=== PATIENT | male | born 1950 | race Caucasian/White ===

== ENCOUNTER 2018-12-20 11:39 | Emergency (ER) | payer MEDICARE, BC ==
[2018-12-20] MEDS ORDERED: Aspirin 81 MG Tab.Chew PO ONE (11:54)
[2018-12-20] MEDS ORDERED: Sodium Chloride 0.9% 10 ML Syringe FLUSH PRN (11:54)
[2018-12-20] MEDS ORDERED: Metoprolol Tartrate 5 MG/5 ML SDV IVPUSH ONE (11:54)
[2018-12-20] MEDS ORDERED: Ondansetron 4 MG/2 ML SDV IVPUSH ONE (11:56)
[2018-12-20] MEDS ORDERED: Nitroglycerin/D5W 25 MG/250 ML BOTTLE IV SCH (12:00)
--- NOTE | 2018-12-20 12:05 | EDM.PDOC ---
ED HPI GENERAL MEDICAL PROBLEM - General Chief Complaint: Chest Pain Stated Complaint: CHEST PAIN Time Seen by Provider: 12/20/18 11:45 Source of Information: Reports: Patient History Limitations: Reports: No Limitations - History of Present Illness INITIAL COMMENTS - FREE TEXT/NARRATIVE: 68-year-old male presents for evaluation and treatment chest pain. Patient reports that he woke up this morning on 0530 with chest pain. States is located in the center of his chest with some radiation into his left elbow and the left upper side of his back. States the pain is a constant dull achiness. He describes pain as "being punched or hit in the chest ". They have tried over-the -counter Tums with no pain relief. He did take a 325 mg aspirin at home but he did vomit this up. He vomited several times this morning, last emesis was around 0700. Reports the nausea is improved at this time. He did feel slightly lightheaded getting out of his private vehicle when entering the ER. He denies any recent fevers cough or cold symptoms. No shortness of breath, syncope or abdominal pain. He denies any pain or swelling in his leg other than normal. He denies any recent activities such as heavy lifting. Patient denies any cardiac history. He has had a stress test but states has been several years. Denies any history of high hypertension or high cholesterol. No diabetes. Reports family history significant for brother with an [place] in his 40s. He has been seen Dr. Ho and Dr. Jose for kidney stones and had 3 surgeries over the last 3 months for kidney stones. Treatments GLASS DECORATOR: Reports: Aspirin, Other (see below) Other Treatments GLASS DECORATOR: TUMS mylanta pepcid Chest Pain Score (Numeric/FACES): 6 - Related Data Allergies Allergy/AdvReac Type Severity Reaction Status Date / Time Sulfa (Sulfonamide Allergy Rash Verified 12/20/18 11:49 Antibiotics) Home Meds: Home Meds Sulfamethoxazole/Trimethoprim [Sulfamethoxazole-Tmp Ds Tablet] 1 tab PO BID 11/13 [History] Past Medical History HEENT History: Reports: Impaired Vision, Other (See Below) Other HEENT History: wears glasses Genitourinary History: Reports: BPH, Renal Calculus Other Genitourinary History: urinary retention. patient straight caths at home PRN. Musculoskeletal History: Reports: Back Pain, Chronic - Past Surgical History GI Surgical History: Reports: Appendectomy Social & Family History - Family History Family Medical History: Noncontributory - Tobacco Use Smoking Status *Q: Never Smoker - Caffeine Use Caffeine Use: Reports: Coffee - Living Situation & Occupation Living situation: Reports: Occupation: Employed ED ROS GENERAL - Review of Systems Review Of Systems: See Below Constitutional: Reports: Malaise. Denies: Fever, Chills Respiratory: Denies: Shortness of Breath, Cough Cardiovascular: Reports: Chest Pain, Lightheadedness. Denies: Blood Pressure Problem, Syncope GI/Abdominal: Reports: Nausea, Vomiting. Denies: Abdominal Pain Musculoskeletal: Reports: Arm Pain, Back Pain Neurological: Denies: Syncope ED EXAM, GENERAL - Physical Exam Exam: See Below Exam Limited By: No Limitations General Appearance: Alert, WD/WN, No Apparent Distress Nose: Normal Inspection Throat/Mouth: Normal Inspection, Normal Oropharynx, Normal Voice, No Airway Compromise Neck: Normal Inspection Respiratory/Chest: No Respiratory Distress, Lungs Clear, Normal Breath Sounds, Chest Non-Tender Cardiovascular: Normal Peripheral Pulses, Regular Rate, Rhythm, No Murmur GI/Abdominal: Normal Bowel Sounds, Soft, Non-Tender Neurological: Alert, Oriented, Normal Cognition Psychiatric: Normal Affect, Normal Mood Skin Exam: Warm, Dry, Normal Color Course - Vital Signs Last Recorded V/S: Last Vital Signs Temp 98.2 F 12/20/18 11:43 Pulse 64 12/20/18 13:13 Resp 16 12/20/18 13:13 BP 141/80 H 12/20/18 13:13 Pulse Ox 98 12/20/18 13:13 - Orders/Labs/Meds Orders: Active Orders 24 hr Category Date Time Status Cardiac Monitoring [RC] . DIRECTED Care 12/20/18 11:54 Active EKG 12 Lead [EKG Documentation Completion] [RC] STAT Care 12/20/18 11:53 Active EKG 12 Lead [EKG Documentation Completion] [RC] STAT Care 12/20/18 12:15 Active Peripheral IV Care [RC] . DIRECTED Care 12/20/18 11:55 Active PTT MIXING STUDY [REF] Stat Lab 12/20/18 12:53 Received Heparin Sodium/D5W [Heparin 25,000 Units in D5W 500 ML] Med 12/20/18 12:30 Active 25,000 units in 500 ml IV TITRATE Nitroglycerin/D5W [Nitroglycerin 25 MG/D5W 250 ML] Med 12/20/18 12:00 Active 25 mg in 250 ml IV TITRATE Sodium Chloride 0.9% [Saline Flush] Med 12/20/18 11:54 Active 10 ml FLUSH ASDIRECTED PRN Peripheral IV Insertion Adult [OM.PC] Routine Oth 12/20/18 11:54 Ordered Medication Orders Nitroglycerin/Dextrose (Nitroglycerin 25 Mg/D5w 250 Ml) 25 mg in 250 mls @ 3 mls/hr IV TITRATE NOEMY; Protocol Last Admin: 12/20/18 12:18 Dose: 5 mcg/min, 3 mls/hr Heparin Sodium/Dextrose (Heparin 25,000 Units In D5w 500 Ml) 25,000 units in 500 mls @ 20 mls/hr IV TITRATE NOEMY; Protocol Last Admin: 12/20/18 12:40 Dose: 1,000 units/hr, 20 mls/hr Sodium Chloride (Saline Flush) 10 ml FLUSH ASDIRECTED PRN PRN Reason: Keep Vein Open Last Admin: 12/20/18 12:13 Dose: 10 ml Labs: Laboratory Tests 12/20/18 12/20/18 12/20/18 Range/Units 11:50 11:50 11:50 WBC 9.90 H (4.23-9.07) K/mm3 RBC 5.15 (4.63-6.08) M/mm3 Hgb 14.9 (13.7-17.5) gm/L Hct 43.4 (40.1-51.0) % MCV 84.3 (79.0-92.2) fl MCH 28.9 (25.7-32.2) pg MCHC 34.3 (32.2-35.5) g/dl RDW Std Deviation 39.5 (35.1-43.9) fL Plt Count 155 L (163-337) K/mm3 MPV 11.4 (9.4-12.3) fl Neut % (Auto) 91.1 H (34.0-67.9) % Lymph % (Auto) 5.4 L (21.8-53.1) % [place] % (Auto) 3.4 L (5.3-12.2) % Eos % (Auto) 0 L (0.8-7.0) Baso % (Auto) 0.0 L (0.1-1.2) % Neut # (Auto) 9.02 H (1.78-5.38) K/mm3 Lymph # (Auto) 0.53 L (1.32-3.57) K/mm3 [place] # (Auto) 0.34 (0.30-0.82) K/mm3 Eos # (Auto) 0.00 L (0.04-0.54) K/mm3 Baso # (Auto) 0.00 L (0.01-0.08) K/mm3 Manual Slide Review Abnormal smear PT 10.8 (9.5-12.1) SECONDS INR 0.99 Sodium 140 (136-145) mEq/L Potassium 3.7 (3.5-5.1) mEq/L Chloride 105 (98-107) mEq/L Carbon Dioxide 23 (21-32) mEq/L Anion Gap 15.7 H (5-15) BUN 14 (7-18) mg/dL Creatinine 1.3 (0.7-1.3) mg/dL Est Cr Clr Drug Dosing 56.15 mL/min Estimated GFR (MDRD) 55 (>60) mL/min BUN/Creatinine Ratio 10.8 L (14-18) Glucose 110 (80-115) mg/dL Calcium 8.9 (8.5-10.1) mg/dL Total Bilirubin 1.7 H (0.2-1.0) mg/dL AST 37 (15-37) U/L ALT 33 (16-63) U/L Alkaline Phosphatase 75 (46-116) U/L CK-MB (CK-2) 28.7 H (0-3.6) ng/ml Troponin I 1.421 H* (0.00-0.056) ng/mL Total Protein 6.9 (6.4-8.2) g/dl Albumin 3.6 (3.4-5.0) g/dl Globulin 3.3 gm/dL Albumin/Globulin Ratio 1.1 (1-2) Lipase 188 (73-393) U/L Meds: Medications Generic Name Dose Route Start Last Admin Trade Name Freq PRN Reason Stop Dose Admin Nitroglycerin/Dextrose 25 mg in 250 mls @ 3 mls/hr 12/20/18 12:00 12/20/18 12 :18 Nitroglycerin 25 Mg/D5w 250 Ml IV 5 mcg/min TITRATE NOEMY 3 mls/hr Administration Protocol 5 MCG/MIN Heparin Sodium/Dextrose 25,000 units in 500 mls @ 20 mls/hr 12/20/18 12:30 12:40 Heparin 25,000 Units In D5w 500 Ml IV 1,000 units/hr TITRATE NOEMY 20 mls/hr Administration Protocol 1,000 UNITS/HR Sodium Chloride 10 ml 12/20/18 11:54 12/20/18 12:13 Saline Flush FLUSH 10 ml ASDIRECTED PRN Administration Keep Vein Open Discontinued Medications Generic Name Dose Route Start Last Admin Trade Name Freq PRN Reason Stop Dose Admin Aspirin 324 mg 12/20/18 11:54 12/20/18 12:11 Aspirin PO 12/20/18 11:55 324 mg ONETIME ONE Administration Heparin Sodium (Porcine) 4,000 units 12/20/18 12:30 12/20/18 12:40 Heparin Sodium IVPUSH 12/20/18 12:31 4,000 units ONETIME ONE Administration Hydromorphone HCl 1 mg 12/20/18 12:30 12/20/18 12:42 Dilaudid IVPUSH 12/20/18 12:31 1 mg ONETIME ONE Administration Metoprolol Tartrate 5 mg 12/20/18 11:54 12/20/18 12:16 Lopressor IVPUSH 12/20/18 11:55 5 mg ONETIME ONE Administration Ondansetron HCl 4 mg 12/20/18 11:56 12/20/18 12:12 Zofran IVPUSH 12/20/18 11:57 4 mg ONETIME ONE Administration - Radiology Interpretation Free Text/Narrative:: chest xray impression per Dr. Knowles: No acute intrathoracic process. - Re-Assessments/Exams Free Text/Narrative Re-Assessment/Exam: 12/20/18 12:26 Inital EKG shows borderline ST depression in the anterior septal and inferior leads. Reviewed by myself and Dr. Galeana. Posterior EKG shows approximately 1/2mm ST elevation in V1, V2 Reviewed by myself and Dr. Galeana Awaiting labs. EKG initially just shows some ST depression in the anterior septal. Minimal. Obtaining a posterior EKG. While turning over in bed patient had an episode of V. tach lasting maybe 2 or 3 seconds. 12/20/18 13:28 Trop, CKMB elevated. Patient would like to go to [facility]. Will go by motors. Spoke with cardiology, Dr. Alvarez at [facility] in [place]. Advised to stop the nitroglycerin drip. This has been stopped. Spoke with Dr. Chau, ER physician. He has accepted the patient. So far the patient a 325 mg aspirin, 5 g IV push of Lopressor, heparin bolus of 4000 units and hyper drip of thousand units an hour. He has received several approximately 30 minutes of a nitro drip at 5 mcgs per hour. This did not improve his chest pain. He did receive 0.5 mg IV Dilaudid for the chest pain. Departure - Departure Time of Disposition: 13:32 Disposition: DC/Tfer to Acute Hospital 02 Reason for Transfer *Q: Primary PCI Indicated Condition: Serious Clinical Impression: NSTEMI (non-ST elevated myocardial infarction) Referrals: Fiona Lai CLAY PRESS OPERATOR [Primary Care Provider] - Forms: ED Department Discharge Additional Instructions: Patient going to [facility]. He will go through the ER. Dr. Chau accepting. Cardiology aware. - My Orders Last 24 Hours: My Active Orders 12/20/18 11:53 EKG 12 Lead [EKG Documentation Completion] [RC] STAT 12/20/18 11:54 Cardiac Monitoring [RC] . DIRECTED Sodium Chloride 0.9% [Saline Flush] 10 ml FLUSH ASDIRECTED PRN Peripheral IV Insertion Adult [OM.PC] Routine 12/20/18 11:55 Peripheral IV Care [RC] . DIRECTED 12/20/18 12:00 Nitroglycerin/D5W [Nitroglycerin 25 MG/D5W 250 ML] 25 mg in 250 ml IV TITRATE 12/20/18 12:15 EKG 12 Lead [EKG Documentation Completion] [RC] STAT 12/20/18 12:30 Heparin Sodium/D5W [Heparin 25,000 Units in D5W 500 ML] 25,000 units in 500 ml IV TITRATE 12/20/18 12:53 PTT MIXING STUDY [REF] Stat - Assessment/Plan Last 24 Hours: My Active Orders 12/20/18 11:53 EKG 12 Lead [EKG Documentation Completion] [RC] STAT 12/20/18 11:54 Cardiac Monitoring [RC] . DIRECTED Sodium Chloride 0.9% [Saline Flush] 10 ml FLUSH ASDIRECTED PRN Peripheral IV Insertion Adult [OM.PC] Routine 12/20/18 11:55 Peripheral IV Care [RC] . DIRECTED 12/20/18 12:00 Nitroglycerin/D5W [Nitroglycerin 25 MG/D5W 250 ML] 25 mg in 250 ml IV TITRATE 12/20/18 12:15 EKG 12 Lead [EKG Documentation Completion] [RC] STAT 12/20/18 12:30 Heparin Sodium/D5W [Heparin 25,000 Units in D5W 500 ML] 25,000 units in 500 ml IV TITRATE 12/20/18 12:53 PTT MIXING STUDY [REF] Stat
[2018-12-20] MEDS ORDERED: Heparin Sodium/D5W 25,000 UNITS/500 ML BAG IV SCH (12:30)
[2018-12-20] MEDS ORDERED: Heparin Sodium 5,000 Units/ML Vial IVPUSH ONE (12:30)
[2018-12-20] MEDS ORDERED: HYDROmorphone 1 MG/ML Syringe IVPUSH ONE (12:30)
--- NOTE | 2018-12-20 13:03 | CR ---
Chest: Portable view of the chest was obtained. Comparison: Prior chest x-ray of 08/30/18. Heart size and mediastinum are within normal limits for portable technique. Lungs are clear with no acute parenchymal change. Bony structures are grossly intact. Impression: 1. Nothing acute is appreciated on portable chest x-ray. Diagnostic code #1
[2018-12-20 13:14] VITALS: BP 141/80
== END 2018-12-20 13:56 ==
LOC: JD.ED 11:39
DX: I21.4 Non-ST elevation (NSTEMI) myocardial infarction (principal); Z88.2 Allergy status to sulfonamides; Z79.899 Other long term (current) drug therapy
CPT/HCPCS: 71045; 80053; 82553; 83690; 84484; 85025; 85610; 85732; 93005; 96365; 96368; 96375; 99285; A9270; J1170; J1644; J2405; J3490; 36415; 93010; 99284

== ENCOUNTER 2020-08-16 13:58 | Emergency (ER) | payer MEDICARE, BC ==
[2020-08-16 14:38] VITALS: BP 142/75
--- NOTE | 2020-08-16 15:17 | EDM.PDOC ---
ED HPI GENERAL MEDICAL PROBLEM - General Chief Complaint: Upper Extremity Injury/Pain Stated Complaint: L ARM INJURY/FACE INJURY Time Seen by Provider: 08/16/20 15:00 Source of Information: Reports: Patient History Limitations: Reports: No Limitations - History of Present Illness INITIAL COMMENTS - FREE TEXT/NARRATIVE: 69-year-old male presents to the ED for evaluation of blunt trauma that he suffered primarily to his left proximal forearm elbow and distal humerus. He also suffered blunt trauma to the left upper lip inside of his nose. 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 It did knock him to the ground. He did not have a nosebleed. Did have some feeling of being dazed and d isoriented after the injury. Also felt that he perhaps was have suffered some hearing loss in his left ear. Injury occurred about 1045 hrs. this morning. [place]. At present he has no headache no nausea or vomiting. He has no injuries to his back or posterior ribs. We did find a hematoma left anterior chest. He denies any pain in his hip or leg and could walk normally. Of note the patient is on Brilinta every day due to coronary artery stents make him at high risk for bleeding. Onset: Today, Sudden Onset Date: 08/16/20 Onset Time: 10:45 Duration: Hour(s): Location: Reports: Face (Left upper lip and zygoma left side of face.), Upper Extremity, Left (Left upper extremity primary proximal left forearm) Quality: Reports: Ache ( and distal humerus.), Throbbing Severity: Moderate Improves with: Reports: Rest Worsens with: Reports: Movement Context: Reports: Trauma (Struck by a large metal gate while working cows today. Several cows are going through the gate at the same time which slammed and into the left side of his body.). Denies: Activity (And touching the area.), Exercise, Lifting, Sick Contact Associated Symptoms: Reports: Confusion. Denies: Chest Pain, Cough (Incidentally.), cough w sputum, Diaphoresis, Fever/Chills, Headaches, Loss of Appetite, Malaise, Rash, Seizure, Shortness of Breath, Syncope Treatments CLINICAL RESOURCE DIRECTOR: Reports: Other (see below) (None.) Left Arm Pain Score (Numeric/FACES): 8 - Related Data Allergies Allergy/AdvReac Type Severity Reaction Status Date / Time Sulfa (Sulfonamide Allergy Rash Verified 08/16/20 14:38 Antibiotics) Home Meds: Home Meds Ascorbate Calcium [Vitamin C] 500 mg PO DAILY 01/07/19 [History] Aspirin [Halfprin] 81 mg PO DAILY 01/07/19 [History] Cholecalciferol (Vitamin D3) [Vitamin D3] 2,000 unit PO DAILY 01/07/19 [History] Colchicine [Colcrys] 0.6 mg PO BID 01/07/19 [History] Metoprolol Succinate 25 mg PO DAILY 01/07/19 [History] Nitroglycerin 0.4 mg SL ASDIRECTED PRN 01/07/19 [History] Pantoprazole Sodium 40 mg PO DAILY 01/07/19 [History] Rosuvastatin Calcium 40 mg PO DAILY 01/07/19 [History] Ticagrelor [Brilinta] 90 mg PO BID 01/07/19 [History] Past Medical History HEENT History: Reports: Impaired Vision, Other (See Below) Other HEENT History: wears glasses Cardiovascular History: Reports: AL, Stents Genitourinary History: Reports: BPH, Renal Calculus Other Genitourinary History: urinary retention. patient straight caths at home PRN. Musculoskeletal History: Reports: Back Pain, Chronic - Past Surgical History HEENT Surgical History: Reports: Tonsillectomy Cardiovascular Surgical History: Reports: Other (See Below) Other Cardiovascular Surgeries/Procedures: stents GI Surgical History: Reports: Appendectomy Other GI Surgeries/Procedures: hemorrhoidectomy Musculoskeletal Surgical History: Reports: Other (See Below) Other Musculoskeletal Surgeries/Procedures:: back surgery Social & Family History - Family History Family Medical History: No Pertinent Family History - Tobacco Use Tobacco Use Status *Q: Never Tobacco User Second Hand Smoke Exposure: No - Caffeine Use Caffeine Use: Reports: None - Recreational Drug Use Recreational Drug Use: No - Living Situation & Occupation Living situation: Reports: Occupation: Employed Review of Systems - Review of Systems Review Of Systems: See Below Constitutional: Reports: No Symptoms Eyes: Reports: Glasses Ears: Reports: Other (Martina Best that his hearing was impaired on the left side or buzzing in his ear. No discharge from the ear) Nose: Reports: Other (Contusion to the left lateral side of his nose without any bleeding) Mouth/Throat: Reports: Other (Lip from contusion.) Respiratory: Reports: No Symptoms. Denies: Shortness of Breath, Wheezing, Pleuritic Chest Pain, Cough, Sputum Cardiovascular: Reports: No Symptoms. Denies: Chest Pain GI/Abdominal: Reports: No Symptoms Genitourinary: Reports: No Symptoms Musculoskeletal: Reports: Back Pain (Low back pain.), Other Skin: Reports: No Symptoms Neurological: Reports: No Symptoms Psychiatric: Reports: No Symptoms ED EXAM, GENERAL - Physical Exam Exam: See Below Exam Limited By: No Limitations General Appearance: Alert, WD/WN, Anxious, Mild Distress, Other (Temperature is 36.3 heart rate 60 and sinus respiratory 16 with O2 sats of 98% room air BP 142/75) Eye Exam: Bilateral Eye: Normal Inspection, PERRL Ears: Normal External Exam, Normal TMs Ear Exam: Left Ear: Auricle Normal, TM normal Nose: Normal Inspection, Normal Mucosa, No Blood, Other (No signs of trauma ) Throat/Mouth: Normal Inspection, Normal Oropharynx (to the nose.), Other (Patient has a mild superficial contusion hematoma left upper lip laterally. Mild contusion to the upper gingiva mucosa) Head: Atraumatic ( but no injury to the dental plate underneath this.), Normocephalic, Other (Overt signs of) Neck: Normal Inspection, Supple, Non-Tender, Full Range of Motion. No: Lymphadenopathy (L), Lymphadenopathy (R) Respiratory/Chest: No Respiratory Distress, Lungs Clear, Normal Breath Sounds, No Accessory Muscle Use, Other (Hematoma identified over the left anterior ribs #5 and 6 approximately 3 cm in diameter purple in discoloration compatible with recent trauma) Cardiovascular: Normal Peripheral Pulses, Regular Rate, Rhythm, No Edema, No Gallop, No Murmur, No Rub Peripheral Pulses: 2+: Posterior Tibial (L), Posterior Tibial (R), Dorsalis Pedis (L), Dorsalis Pedis (R), 3+: Carotid (L), Carotid (R) GI/Abdominal: Normal Bowel Sounds, Soft, Non-Tender, No Organomegaly, No Mass, Pelvis Stable Back Exam: Normal Inspection, Full Range of Motion. No: CVA Tenderness (L), CVA Tenderness (R) Extremities: Normal Inspection, Normal Range of Motion, Non-Tender, No Pedal Edema, Normal Capillary Refill Neurological: Alert, Oriented, CN II-XII Intact, Normal Cognition, Normal Gait Psychiatric: Normal Affect, Normal Mood Skin Exam: Warm, Dry, Normal Color, No Rash, Other (Lesion left upper lip fusion proximal left forearm) Course - Vital Signs Last Recorded V/S: Last Vital Signs Temp 36.3 C 08/16/20 14:36 Pulse 70 08/16/20 16:14 Resp 16 08/16/20 14:36 BP 142/75 H 08/16/20 14:36 Pulse Ox 99 08/16/20 16:14 - Radiology Interpretation Free Text/Narrative:: 69-year-old male presents to the ED for evaluation of injury sustained from a cattle gate smashing into him as cows were being heard [place] slammed into the left side of his face causing a contusion to his left upper lip and lateral side of his face without clinical evidence of fracture of the zygoma maxilla or mandible. Mild minimal contusion to the gingiva margin left upper. His dental plate is intact. He suffered contusion to the left forearm proximally and distal humerus. He has full pronation supination at the elbow. He has full ability to abduct and to forward flex the arm. Found hematoma on his left anterior chest measuring about 3 cm in diameter over ribs 5 and 6 in the midclavicular line. This is mildly tender. No injuries to the abdomen or thoracic spine were identified. Plan x-ray of the left elbow to be done. - Re-Assessments/Exams Free Text/Narrative Re-Assessment/Exam: 08/16/20 15:41 x-rays of the left elbow are normal. There is no injury to the radial head ulna or distal humerus. No traumatic effusion in the elbow appre ciated.. Patient and reassured. Discharged to home. Departure - Departure Time of Disposition: 15:57 Disposition: Home, Self-Care 01 Condition: Fair Clinical Impression: Contusion of lip, initial encounter Contusion of forearm, left Qualifiers: Encounter type: initial encounter Qualified Code(s): S50.12XA - Contusion of left forearm, initial encounter Hematoma of left chest wall Qualifiers: Encounter type: initial encounter Qualified Code(s): S20.212A - Contusion of left front wall of thorax, initial encounter - Discharge Information *PRESCRIPTION DRUG MONITORING PROGRAM REVIEWED*: Not Applicable *COPY OF PRESCRIPTION DRUG MONITORING REPORT IN PATIENT PUSHPA: Not Applicable Instructions: Contusion, [id number] Referrals: Fiona Lai THERAPY DIRECTOR [Primary Care Provider] - Forms: ED Department Discharge Additional Instructions: Evaluation in the emergency room today in regards to blunt force trauma to your left proximal forearm elbow area and hematoma left anterior chest wall and right upper lip. These injuries occurred as a result of several cows trying to go through the gate at the same time and the gate struck you in the left side of your body and face. Swelling occurs nearly immediately due to being on Brilinta--blood thinner. Examination of the face shows no evidence of facial bone fractures. There is a contusion and hematoma to the left upper lip and inner upper lip as well but no injury to the denture plate. There is no injury to the mandible or jaw bone and ear was normal as well on the left side. Found can a hematoma 3 cm in diameter over the left lateral chest wall in the midclavicular line over ribs 6 and 7. This will take about 10 to 12 days to fully resolve. Contusion to the left proximal forearm is in the muscle of the forearm and x-rays revealed no broken bones in the distal upper arm or humerus or in the elbow itself and forearm bones. Expect to be more stiff and sore over the next 24 to 48 hours and then gradual improvement. May place ice on left forearm for 1/2-hour out of every 4 hours today and tomorrow a for first 48 hours after injury and then apply heat if needed to help the blood resorbed from the soft tissues. Sepsis Event Note (ED) - Evaluation Sepsis Screening Result: No Definite Risk - Focused Exam Vital Signs: Vital Signs Temp Pulse Resp BP Pulse Ox 08/16/20 16:14 70 99 08/16/20 14:36 36.3 C 60 16 142/75 H 98
[2020-08-16 16:15] VITALS: PULSE 70
--- NOTE | 2020-08-16 17:37 | CR ---
Left elbow: 4 views of the left elbow were obtained. Comparison: No prior elbow study is available. No joint effusion is seen. Joint spaces are preserved. No acute fracture, dislocation or other bony abnormality is appreciated. Impression: 1. Nothing acute seen on the left elbow study. Diagnostic code #1
== END 2020-08-16 16:15 | disposition home or self-care (01) ==
LOC: JD.ED 13:58
DX: S50.12XA Contusion of left forearm, initial encounter (principal); S20.212A Contusion of left front wall of thorax, initial encounter; S00.531A Contusion of lip, initial encounter; I25.2 Old myocardial infarction; Z88.2 Allergy status to sulfonamides; Z79.82 Long term (current) use of aspirin; Z79.899 Other long term (current) drug therapy; W22.8XXA Striking against or struck by other objects, initial encounter; Y92.89 Other specified places as the place of occurrence of the external cause
CPT/HCPCS: 73080-26-LT; 73080-LT; 99283-25

== ENCOUNTER 2021-06-29 00:26 | Emergency (ER) | payer MEDICARE, BC ==
[2021-06-29 00:44] VITALS: BP 149/78; PULSE 46
[2021-06-29] MEDS ORDERED: Benztropine 1 MG Tab PO STA (02:16)
[2021-06-29] MEDS ORDERED: Haloperidol Lactate 5 MG/ML SDV IM ONE (02:16)
--- NOTE | 2021-06-29 02:23 | EDM.PDOC ---
ED HPI GENERAL MEDICAL PROBLEM - General Chief Complaint: Neurological Problem Stated Complaint: LEFT SIDE PRESSURE/TINGLING Time Seen by Provider: 06/29/21 01:54 Source of Information: Reports: Patient, Family () History Limitations: Reports: No Limitations - History of Present Illness INITIAL COMMENTS - FREE TEXT/NARRATIVE: Mr. Sams is a pleasant 70-year-old gentleman who now presents to the ED stating that he developed a pressure sensation to his left shoulder around 20:30 tonight, then tingling to his left upper extremity and the dorsal aspect of his left hand around 21:00. The left shoulder pressure is still slightly present, although the left upper extremity tingling has resolved. He also reports a possible change in the vision of his left eye, stating that he missed some things while playing solitaire. He states that it seemed to be out of focus for about 45 minutes, starting around 21:30, and that it felt like his left eye was swollen around 20:45. The patient is on Plavix. Here in the ED this morning, the patient's initial BP was found to be slightly elevated at 149/78, with bradycardia of 46 bpm. He is afebrile, saturating 99% on room air. He appears to be comfortable, in no acute distress. The patient states that he saw his Cardiovascular Physician Assistant this past 06/28/2021 after he experienced some chest pain about 1 week ago. He had taken ni troglycerin. He states that his Cardiovascular Physician Assistant did make any changes to his current medications. Otherwise, the patient denies having a recent fever, chills, sore throat, ear pain, nasal or sinus congestion, cough, dyspnea, palpitations, nausea, vomiting, constipation, diarrhea, abdominal pain, urinary symptoms, recent weight gain or weight loss, recent bloody bowel movements or black bowel movements, recent joint aches, headaches, or rashes. The patient's PCP is Fiona Lai NP. His Cardiovascular Physician Assistant is Dr. Christian Christopher. His Urologist is Dr. Valdo Jose. His pulmonology midlevel is London Flores NP, at [facility]. He has not received a COVID vaccination, nor an influenza vaccination this season. - Related Data Allergies Allergy/AdvReac Type Severity Reaction Status Date / Time Sulfa (Sulfonamide Allergy Rash Verified 06/29/21 00:38 Antibiotics) Home Meds: Home Meds Ascorbate Calcium [Vitamin C] 500 mg PO DAILY 01/07/19 [History] Aspirin [Halfprin] 81 mg PO DAILY 01/07/19 [History] Cholecalciferol (Vitamin D3) [Vitamin D3] 2,000 unit PO DAILY 01/07/19 [History] Colchicine [Colcrys] 0.6 mg PO BID 01/07/19 [History] Metoprolol Succinate 25 mg PO DAILY 01/07/19 [History] Nitroglycerin 0.4 mg SL ASDIRECTED PRN 01/07/19 [History] Pantoprazole Sodium 40 mg PO DAILY 01/07/19 [History] Rosuvastatin Calcium 40 mg PO DAILY 01/07/19 [History] Ticagrelor [Brilinta] 90 mg PO BID 01/07/19 [History] Past Medical History HEENT History: Reports: Impaired Vision (wears glasses) Cardiovascular History: Reports: CAD, [place] (2019) Genitourinary History: Reports: BPH, Renal Calculus, Retention, Urinary (self- caths) - Past Surgical History HEENT Surgical History: Reports: Tonsillectomy Cardiovascular Surgical History: Reports: Coronary Artery Stent (x 4), Other (See Below) (Coronary angiogram x 2) GI Surgical History: Reports: Appendectomy, Other (See Below) (Hemorrhoidectomy) Male Surgical History: Reports: Prostatectomy (partial) Social & Family History - Tobacco Use Tobacco Use Status *Q: Never Tobacco User Second Hand Smoke Exposure: No - Caffeine Use Caffeine Use: Reports: None - Alcohol Use Alcohol Use History: No - Recreational Drug Use Recreational Drug Use: No - Living Situation & Occupation Living situation: Reports: , 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 ED EXAM, NEURO - Physical Exam Exam: See Below Exam Limited By: No Limitations General Appearance: Alert, WD/WN, No Apparent Distress Eye Exam: Bilateral Eye: EOMI, Normal Inspection Ears: Normal External Exam, Normal Canal, Hearing Grossly Normal, Normal TMs Nose: Normal Inspection, Normal Mucosa, No Blood Throat/Mouth: Normal Inspection, Normal Lips, Normal Teeth, Normal Gums, Normal Oropharynx, Normal Voice, No Airway Compromise Head Exam: Atraumatic, Normocephalic Neck: Normal Inspection, Supple, Non-Tender, Full Range of Motion. No: Carotid Bruit, Lymphadenopathy (L), Lymphadenopathy (R) Respiratory/Chest: No Respiratory Distress, Lungs Clear, Normal Breath Sounds, No Accessory Muscle Use Cardiovascular: Normal Peripheral Pulses, Regular Rate, Rhythm, No Edema, No Gallop, No JVD, No Murmur, No Rub GI/Abdominal: Normal Bowel Sounds, Soft, Non-Tender, No Organomegaly, No Distention, No Abnormal Bruit, No Mass Neurological: Alert, Normal Dorsiflexion, CN II-XII Intact, Normal Plantar Flexion, No Motor/Sensory Deficits, Oriented x 3 Back Exam: Normal Inspection, Full Range of Motion, NT Extremities: Normal Inspection, Normal Range of Motion, No Pedal Edema, Normal Capillary Refill Psychiatric: Normal Affect Skin Exam: Warm, Dry, Intact, Normal Color, No Rash #1 Interpretation EKG Date: 06/29/21 Time: 02:41 Rhythm: Other (Sinus bradycardia) Rate (Beats/Min): 45 [place]: Normal P-Wave: Present QRS: Normal ST-T: Normal QT: Normal Comparison: No Change (12/20/2018) Course - Vital Signs Last Recorded V/S: Last Vital Signs Temp 36.4 C 06/29/21 00:39 Pulse 46 L 06/29/21 00:39 Resp 16 06/29/21 00:39 BP 149/78 H 06/29/21 00:39 Pulse Ox 99 06/29/21 00:39 - Orders/Labs/Meds Labs: Laboratory Tests 06/29/21 06/29/21 06/29/21 Range/Units 01:45 01:45 01:45 WBC 4.40 (4.23-9.07) K/mm3 RBC 4.47 L (4.63-6.08) M/mm3 Hgb 13.6 L (13.7-17.5) gm/dl Hct 40.7 (40.1-51.0) % MCV 91.1 (79.0-92.2) fl MCH 30.4 (25.7-32.2) pg MCHC 33.4 (32.2-35.5) g/dl RDW Std Deviation 42.7 (35.1-43.9) fL Plt Count 129 L (163-337) K/mm3 MPV 11.2 (9.4-12.3) fl Neutrophils % (Manual) 69 H (40-60) % Band Neutrophils % 1 (0-10) % Lymphocytes % (Manual) 17 L (20-40) % Atypical Lymphs % 1 % Monocytes % (Manual) 7 (2-10) % Eosinophils % (Manual) 5 (0.8-7.0) % Basophils % (Manual) 0 L (0.2-1.2) Platelet Estimate Decreased RBC Morph Comment Normal PT 11.2 (9.7-12.0) SECONDS INR 1.01 Sodium 142 (136-145) mEq/L Potassium 3.6 (3.5-5.1) mEq/L Chloride 110 H (98-107) mEq/L Carbon Dioxide 26 (21-32) mEq/L Anion Gap 9.6 (5-15) BUN 14 (7-18) mg/dL Creatinine 1.3 (0.7-1.3) mg/dL Est Cr Clr Drug Dosing 53.73 mL/min Estimated GFR (MDRD) 55 (>60) mL/min BUN/Creatinine Ratio 10.8 L (14-18) Glucose 104 H (70-99) mg/dL Calcium 8.3 L (8.5-10.1) mg/dL Total Bilirubin 0.9 (0.2-1.0) mg/dL AST 23 (15-37) U/L ALT 22 (16-63) U/L Alkaline Phosphatase 54 (46-116) U/L Troponin I < 0.017 (0.00-0.056) ng/mL Total Protein 6.2 L (6.4-8.2) g/dl Albumin 3.3 L (3.4-5.0) g/dl Globulin 2.9 gm/dL Albumin/Globulin Ratio 1.1 (1-2) Meds: Medications Discontinued Medications Generic Name Dose Route Start Last Admin Trade Name Freq PRN Reason Stop Dose Admin Benztropine Mesylate 1 mg 06/29/21 02:16 06/29/21 02:45 Benztropine 1 Mg Tab PO 06/29/21 02:17 1 mg ONETIME STA Administration Haloperidol Lactate 5 mg 06/29/21 02:16 06/29/21 02:45 Haloperidol Lactate 5 Mg/Ml Sdv IM 06/29/21 02:17 5 mg ONETIME ONE Administration - Re-Assessments/Exams Free Text/Narrative Re-Assessment/Exam: 06/29/21 02:20 A CBC, CMP, troponin, and INR were ordered at triage. I have added a CT of the head without contrast and an ECG. In the meantime, the patient will be treated for a migraine with IM Haldol and oral Cogentin, to see if that resolves his minor residual symptoms. 06/29/21 03:45 The patient's CBC is remarkable for a Hgb slightly depressed at 13.6, but with a Hct normal at 40.7, and modest thrombocytopenia of 129,000, with the remainder of his CBC being unremarkable. His CMP is remarkable for slight hyperglycemia of 104, and is otherwise unremarkable. His troponin is undetectably low. His PT/INR are within normal limits. 06/29/21 04:20 CT of the head without contrast is read by [facility] as: 1. No calvarial or skull base fracture. 2. No acute infarct or hemorrhage. 3. 3.6 x 1.5 cm left middle cranial fossa arachnoid cyst. 06/29/21 04:26 Test results discussed with the patient and his . At present, he states that his symptoms have completely resolved, although the Haldol made him feel jumpy. It is unclear if his symptoms were due to a migraine or not. The other possibility is a TIA, although I doubt a TIA. I think it would be prudent, however, for the patient to undergo an MRI of the brain and carotids, therefore I will submit an outpatient order, with the results going to Fiona Lai NP. It may be possible for the patient to undergo the MRIs later today. Departure - Departure Time of Disposition: 04:35 Disposition: Home, Self-Care 01 Condition: Good Clinical Impression: Neurological symptoms - Discharge Information *PRESCRIPTION DRUG MONITORING PROGRAM REVIEWED*: Not Applicable *COPY OF PRESCRIPTION DRUG MONITORING REPORT IN PATIENT PUSHPA: Not Applicable Instructions: Magnetic Resonance Imaging, [id number] Referrals: Fiona Lai NP [Primary Care Provider] - Christian Christopher MD [Ordering Only Provider] - Valdo Jose MD [Ordering Only Provider] - London Flores NP [Ordering Only Provider] - Forms: ED Department Discharge Additional Instructions: You were seen in the emergency room after developing a pressure sensation to her left shoulder, followed by a tingling sensation to the top left of your head, with difficulty focusing her left eye, along with tingling to left mouth and left upper extremity. Work-up in the ER included several blood tests, a CT of your head, and an ECG. Your entire work-up was unremarkable. You have not suffered a stroke. You have not suffered a heart attack. Your symptoms resolved after you were treated with a anti-migraine medicine, but it is not clear if your symptoms were due to a migraine or not. There is a remote possibility that you suffered a TIA. An order for an outpatient MRI of your brain and carotids was submitted. You will be contacted by someone from the radiology department, to schedule the MRIs. Please follow-up with your PCP, Fiona Lai NP, following your MRIs. If any other problems, please do not hesitate to return to the ER. Sepsis Event Note (ED) - Evaluation Sepsis Screening Result: No Definite Risk
--- NOTE | 2021-06-29 07:09 | CT ---
Head CT Technique: Multiple axial sections through the brain were obtained. Intravenous contrast was not utilized. Comparison: Baseline head CT study of 04/19/10 and recent MRI brain of 05/05/15. Findings: Stable arachnoid cyst is noted anteriorly within the left temporal fossa. This is similar to prior studies and has measurements of approximately 3.9 cm. Ventricles along with basal cisterns and sulci over the convexities appear within normal limits for the patient's age. No abnormal parenchymal densities are seen. No evidence of intracranial hemorrhage is seen. No midline shift or mass-effect is seen. Slight calcification is seen within the vertebral vessels and within the carotid siphon. Bone window settings were reviewed which show the visualized mastoid sinuses and paranasal sinuses to appear clear. No acute calvarial abnormality is appreciated. Impression: 1. Stable arachnoid cyst within the anterior left temporal fossa from prior studies. 2. Slight senescent change as noted above. 3. No acute intracranial abnormality is appreciated. Diagnostic code #2 I agree with preliminary report from [facility], finalized on 06/29/21, 5:01 AM DIETETIC INTERN, code 1
== END 2021-06-29 04:46 | disposition home or self-care (01) ==
LOC: JD.ED 00:26
DX: R20.2 Paresthesia of skin (principal); I25.10 Atherosclerotic heart disease of native coronary artery without angina pectoris; I25.2 Old myocardial infarction; N40.0 Benign prostatic hyperplasia without lower urinary tract symptoms; Z95.5 Presence of coronary angioplasty implant and graft; Z79.02 Long term (current) use of antithrombotics/antiplatelets; Z88.2 Allergy status to sulfonamides; Z79.82 Long term (current) use of aspirin; Z79.899 Other long term (current) drug therapy
CPT/HCPCS: 36415; 70450; 80053; 84484; 85007; 85027; 85610; 93005; 96372; 99284; A9270; J1630